=== PATIENT | male | born 1990 | race African-American/Black ===

== ENCOUNTER 2021-05-05 13:59 | Emergency (ER) | payer SELFPAY ==
[2021-05-05] MEDS ORDERED: KETOROLAC 30 MG/ML INJ ONE (14:40)
[2021-05-05] MEDS ORDERED: FAMOTIDINE 20 MG/2 ML VIAL IV ONE (14:41)
[2021-05-05] MEDS ORDERED: NA CHLORIDE 0.9% 1,000 ML ONE (14:41)
[2021-05-05] MEDS ORDERED: ONDANSETRON 4 MG/2 ML VIAL ONE (14:41)
[2021-05-05 14:59] LABS: Absolute Lymphocytes (CBC) 0.2 K/uL (0.7-4.9); Hematocrit 42.3 % (39.6-49.0); Lymphocytes % 2.9 % (15.3-44.8); MPV 7.4 fL (7.6-11.3); RBC Red Blood Cell Count 5.55 M/uL (4.33-5.43)
[2021-05-05 15:14] LABS: ALT/SGPT 38 U/L (12-78); AST/SGOT 18 U/L (15-37); Alkaline Phosphatase 66 U/L (45-117); BUN Blood Urea Nitrogen 9 mg/dL (7-18); Bicarbonate 26 mmol/L (21-32); Bilirubin Total 0.8 mg/dL (0.2-1.0); Glucose Level 108 mg/dL (74-106); Lipase 101 U/L (73-393); Potassium 3.4 mmol/L (3.5-5.1); Protein, Total 7.3 g/dL (6.4-8.2); Sodium Level 138 mmol/L (136-145)
[2021-05-05 15:52] LABS: SARS-COV-2 RT PCR NEGATIVE (NEGATIVE)
[2021-05-05 16:14] LABS: Blood Morphology Comment NOTED (NOT SEEN); Platelet Estimate ADEQ; Poikilocytosis 2+; White Blood Cell Scan OK (OK)
--- NOTE | 2021-05-05 16:37 | RAD REPORT ---
EXAM DESCRIPTION: CT - Abdomen Pelvis W Contrast - 05/05/2021 4:19 pm CLINICAL HISTORY: Abdominal pain COMPARISON: none. TECHNIQUE: Computed axial tomography of the abdomen pelvis was obtained. 100 cc Isovue-300 was admin istered intravenously. Oral contrast was not requested which limits evaluation of bowel and appendix. All CT scans are performed using dose optimization technique as appropriate and may include automated exposure control or mA/KV adjustment according to patient size. FINDINGS: The liver, spleen, pancreas, adrenal and kidneys appear unremarkable. There is no evidence of diverticulitis. Fluid is present throughout nondilated small bowel IMPRESSION: Fluid is present throughout nondilated small bowel which may indicate an enteritis
--- NOTE | 2021-05-05 16:44 | EDPHYS ---
Physician Documentation [facility] Name: Glenda Ramires Jr Age: 30 yrs Sex: Male : 1990 Arrival Date: 05/05/2021 Time: 14:03 Bed 17 Private MD: ED Physician Bill Carey HPI: 05/05 14:51 This 30 yrs old Black Male presents to ER via Ambulatory with complaints of Abdominal kb Pain, Headache. 14:51 The patient presents with abdominal pain that is diffuse. Onset: The symptoms/episode kb began/occurred last night. The symptoms do not radiate. Associated signs and symptoms: Pertinent positives: diarrhea, nausea. The symptoms are described as constant. Modifying factors: The symptoms are alleviated by nothing, the symptoms are aggravated by nothing. Severity of pain: At its worst the pain was moderate in the emergency department the pain is unchanged. The patient has not experienced similar symptoms in the past. The patient has not recently seen a physician. Pt states he started not feeling well last night, abd pain, nausea, diarrhea x1 and headache today. Historical: - Allergies: 14:13 No Known Allergies; ll1 - PMHx: 14:13 None; ll1 - PSHx: 14:13 None; ll1 - Immunization history:: Client reports having NOT received the Covid vaccine. - Social history:: Smoking status: Reported history of juuling and/or vaping. ROS: 14:49 Constitutional: Negative for fever, chills, and weight loss. kb 14:49 Abdomen/GI: Positive for abdominal pain, nausea, diarrhea. 14:49 Neuro: Positive for headache. 14:49 All other systems are negative. Exam: 14:49 Constitutional: This is a well developed, well nourished patient who is awake, alert, kb and in no acute distress. Head/Face: Normocephalic, atraumatic. ENT: Moist Mucous membranes Cardiovascular: Regular rate and rhythm with a normal S1 and S2. No gallops, murmurs, or rubs. No pulse deficits. Respiratory: Respirations even and unlabored. No increased work of breathing. Talking in full sentences Abdomen/GI: Soft, non-tender. No distention Skin: Warm, dry with normal turgor. Normal color. MS/ Extremity: Pulses equal, no cyanosis. Neurovascular intact. Full, normal range of motion. Neuro: Awake and alert, GCS 15, oriented to person, place, time, and situation. Moves all extremities. Normal gait. Psych: Awake, alert, with orientation to person, place and time. Behavior, mood, and affect are within normal limits. Vital Signs: 14:11 BP 132 / 85; Pulse 91; Resp 16; Temp 98.3; Pulse Ox 100% ; Weight 63.96 kg; Height 5 ll1 ft. 6 in. (167.64 cm); Pain 7/10; 15:03 BP 127 / 82; Pulse 86; Resp 18; Pulse Ox 98% on R/A; ph 16:10 BP 128 / 89; Pulse 84; Resp 18; Pulse Ox 98% on R/A; ph 16:59 Temp 98.0(TE); ph 14:11 Body Mass Index 22.76 (63.96 kg, 167.64 cm) ll1 MDM: 14:09 Patient medically screened. kb 14:49 Data reviewed: vital signs, nurses notes. Data interpreted: Pulse oximetry: on room air kb is 100 %. Interpretation: normal. 16:43 Counseling: I had a detailed discussion with the patient and/or guardian regarding: the kb historical points, exam findings, and any diagnostic results supporting the discharge/admit diagnosis, lab results, radiology results, the need for outpatient follow up, a family practitioner, to return to the emergency department if symptoms worsen or persist or if there are any questions or concerns that arise at home. 05/05 14:14 Order name: CBC with Diff; Complete Time: 16:19 kb 05/05 14:14 Order name: CMP; Complete Time: 15:15 kb 05/05 14:14 Order name: Lipase; Complete Time: 15:15 kb 05/05 14:14 Order name: COVID-19/FLU A+B (Document "Date of Onset" if Symptomatic); Complete Time: kb 15:54 05/05 15:54 Order name: CT Abd/Pelvis - IV Contrast Only; Complete Time: 16:43 kb 05/05 16:15 Order name: CBC Smear Scan; Complete Time: 16:19 EDMS 05/05 14:14 Order name: IV Saline Lock; Complete Time: 14:51 kb 05/05 14:14 Order name: Labs collected and sent; Complete Time: 14:51 kb Administered Medications: 14:57 Drug: NS 0.9% 1000 ml Route: IV; Rate: 1 bolus; Site: right antecubital; ph 17:00 Follow up: Response: No adverse reaction; IV Status: Completed infusion; IV Intake: ph 1000ml 14:57 Drug: Pepcid (famotidine) 20 mg Route: IVP; Site: right antecubital; ph 17:00 Follow up: Response: No adverse reaction ph 14:57 Drug: Zofran (Ondansetron) 4 mg Route: IVP; Site: right antecubital; ph 17:00 Follow up: Response: No adverse reaction ph 14:57 Drug: Ketorolac 15 mg Route: IVP; Site: right antecubital; ph 15:30 Follow up: Response: No adverse reaction; Pain is decreased ph Disposition: 05/06 13:46 Co-signature as Attending Physician, Bill KLINE was immediately available on-site ms3 in the Emergency Department for consultation in the care of the patient.. Disposition Summary: 05/05/21 16:44 Discharge Ordered Location: Home kb Condition: Stable kb Diagnosis - Enteritis kb Followup: kb - With: Emergency Department - When: As needed - Reason: Worsening of condition Followup: kb - With: Private Physician - When: 2 - 3 days - Reason: Recheck today's complaints, Continuance of care, Re-evaluation by your physician Discharge Instructions: - Discharge Summary Sheet kb - Viral Gastroenteritis, Adult, [id number] kb Forms: - Medication Reconciliation Form kb - Thank You Letter kb - Antibiotic Education kb - Prescription Opioid Use kb - Work release form ss Prescriptions: - Zofran 4 mg Oral Tablet - take 1 tablet by ORAL route every 6 hours As needed; 20 tablet; Refills: 0, kb Product Selection Permitted - dicyclomine 20 mg Oral Tablet - take 1 tablet by ORAL route 4 times per day As needed; 20 tablet; Refills: 0, kb Product Selection Permitted Signatures: Dispatcher [employer] Jeaneth Banda FNP-C FNP-Ckb Hall, Patricia RN RN Courtney Michael RN RN ll1 Bill Carey DO DO ms3
--- NOTE | 2021-05-05 16:44 | ER ---
Nurse's Notes [facility] Name: Glenda Ramires Jr Age: 30 yrs Sex: Male : 1990 Arrival Date: 05/05/2021 Time: 14:03 Bed 17 Private MD: Diagnosis: Enteritis Presentation: 05/05 14:11 Chief complaint: Patient states: Abd pain, KIM, nausea, diarrhea for 1 day. Coronavirus ll1 screen: Vaccine status: Patient reports being unvaccinated. Client denies travel out of the [place] in the last 14 days. headache, nausea, Client presents with at least one sign or symptom that may indicate coronavirus-19. Standard/surgical mask placed on the client. Ebola Screen: Patient denies travel to an Ebola-affected area in the 21 days before illness onset. Onset of symptoms was May 05, 2021. 14:11 Method Of Arrival: Ambulatory ll1 14:11 Acuity: DAMIÁN 3 ll1 14:30 Initial Sepsis Screen: Does the patient meet any 2 criteria? No. Patient's initial ph sepsis screen is negative. Does the patient have a suspected source of infection? No. Patient's initial sepsis screen is negative. Risk Assessment: Do you want to hurt yourself or someone else? Patient reports no desire to harm self or others. Historical: - Allergies: 14:13 No Known Allergies; ll1 - PMHx: 14:13 None; ll1 - PSHx: 14:13 None; ll1 - Immunization history:: Client reports having NOT received the Covid vaccine. - Social history:: Smoking status: Reported history of juuling and/or vaping. Screenin:29 Abuse screen: Denies threats or abuse. Denies injuries from another. Nutritional ph screening: No deficits noted. Tuberculosis screening: No symptoms or risk factors identified. Fall Risk None identified. Assessment: 15:02 General: Appears in no apparent distress. comfortable, Behavior is calm, cooperative, ph appropriate for age, Denies fever. Pain: Complains of pain in abdomen. Neuro: Level of Consciousness is awake, alert, obeys commands, Oriented to person, place, time, situation, Reports headache. Cardiovascular: Capillary refill < 3 seconds in bilateral fingers Patient's skin is warm and dry. Respiratory: Airway is patent Respiratory effort is even, unlabored. GI: Abdomen is non-distended, Abd is soft and non tender X 4 quads. Reports lower abdominal pain, upper abdominal pain, diarrhea, nausea. Derm: Skin is intact, Skin is pink, warm \T\ dry. 16:10 Reassessment: Patient appears in no apparent distress at this time. Patient and/or ph family updated on plan of care and expected duration. Pain level reassessed. Patient is alert, oriented x 3, equal unlabored respirations, skin warm/dry/pink. 16:59 Reassessment: Patient appears in no apparent distress at this time. Patient and/or ph family updated on plan of care and expected duration. Pain level reassessed. Patient is alert, oriented x 3, equal unlabored respirations, skin warm/dry/pink. Pt d/c home. Vital Signs: 14:11 BP 132 / 85; Pulse 91; Resp 16; Temp 98.3; Pulse Ox 100% ; Weight 63.96 kg; Height 5 ll1 ft. 6 in. (167.64 cm); Pain 7/10; 15:03 BP 127 / 82; Pulse 86; Resp 18; Pulse Ox 98% on R/A; ph 16:10 BP 128 / 89; Pulse 84; Resp 18; Pulse Ox 98% on R/A; ph 16:59 Temp 98.0(TE); ph 14:11 Body Mass Index 22.76 (63.96 kg, 167.64 cm) ll1 ED Course: 14:03 Patient arrived in ED. rg4 14:04 Jeaneth Abreu [facility]-C [facility]. kb 14:04 Bill Carey DO is Attending Physician. kb 14:11 Arm band placed on Patient placed in an exam room, on a stretcher. ll1 14:13 Triage completed. ll1 14:28 Gina Beavers, RN is Primary Nurse. ph 14:29 Patient has correct armband on for positive identification. Bed in low position. Call ph light in reach. Side rails up X 1. Pulse ox on. NIBP on. Door closed. Noise minimized. 16:21 CT Abd/Pelvis - IV Contrast Only In Process Unspecified. EDMS 17:01 No provider procedures requiring assistance completed. IV discontinued, intact, ph bleeding controlled, No redness/swelling at site. Pressure dressing applied. Administered Medications: 14:57 Drug: NS 0.9% 1000 ml Route: IV; Rate: 1 bolus; Site: right antecubital; ph 17:00 Follow up: Response: No adverse reaction; IV Status: Completed infusion; IV Intake: ph 1000ml 14:57 Drug: Pepcid (famotidine) 20 mg Route: IVP; Site: right antecubital; ph 17:00 Follow up: Response: No adverse reaction ph 14:57 Drug: Zofran (Ondansetron) 4 mg Route: IVP; Site: right antecubital; ph 17:00 Follow up: Response: No adverse reaction ph 14:57 Drug: Ketorolac 15 mg Route: IVP; Site: right antecubital; ph 15:30 Follow up: Response: No adverse reaction; Pain is decreased ph Intake: 17:00 IV: 1000ml; Total: 1000ml. ph Outcome: 16:44 Discharge ordered by . kb 17:01 Discharged to home ambulatory. ph 17:01 Condition: good 17:01 Discharge instructions given to patient, Instructed on discharge instructions, follow up and referral plans. medication usage, Demonstrated understanding of instructions, follow-up care, medications, Prescriptions given X 2. 17:01 Patient left the ED. ph Signatures: Dispatcher [employer] EDMS Jeaneth Abreu, ENTRY LEVEL SALES REPRESENTATIVE-C ENTRY LEVEL SALES REPRESENTATIVE-Gina Tracey, RN Sharmila Martinez ph4 Courtney Simpson RN RN ll1
[2021-05-05 17:06] VITALS: O2SAT 98
[2021-05-05 17:08] VITALS: BP 128/89
[2021-05-05 17:09] VITALS: TEMP 98
== END 2021-05-05 17:01 | disposition home or self-care (01) ==
LOC: ER 13:59
DX: K52.9 Noninfective gastroenteritis and colitis, unspecified (principal); R51.9 Headache, unspecified; R11.0 Nausea
CPT/HCPCS: 0240U; 36415; 74177; 80053; 83690; 85025; J2405; J7030; Q9967

== ENCOUNTER → 2023-01-30 | Emergency (ER) | payer OTHER ==
[~2023-01-30] MED LIST: IBUPROFEN 400 MG TAB ONE; TRAMADOL HCL 50 MG TAB ONE
--- OUTSIDE RECORDS SUMMARY | 2023-01-30 03:02 | XMS REPORT | Continuity of Care Document ---
Author Name Unknown Address [address] [place] [address] [employer]connect Address [address] [place] [address] [address] [place] [address] Care Team Providers Care Sales Account Coordinator Name Role Phone Unavailable Unavailable Unavailable Results Test Description Test Time Test Comments Results Result Co mments Source [id number] 22:53:52* Test Item Value Reference Range Interpretation Comme nts RPR RESULT (test code = 3501) NON-REACTIVE NON-REACTIVE RPR TITER (test code = 3500) NOT INDIC. TITER NOT INDIC. UNLESS OTHERWISE INDICATED, ALL TESTING PERFORMED [facility] [address] [place] [id number] ORNAMENTAL IRON ERECTOR: MINOR QUINTANILLA M.D. CLIA NUMBER [id number] [facility] [place]. [id number]
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
[2023-01-30 08:22] VITALS: BP 122/96; TEMP 98.1; O2SAT 100
--- NOTE | 2023-01-30 13:28 | RAD REPORT ---
EXAM DESCRIPTION: RAD - Foot Left 3 View - 01/30/2023 4:25 am CLINICAL HISTORY: 32 years Male left foot pain TECHNIQUE: 3 x-ray views of the left foot were performed on 01/30/2023 at 4:19 AM. COMPARISON: None FINDINGS: There is mild cortical irregularity along the dorsal aspect of the tarsal metatarsal joint on the lateral projection which may indicate a small avulsion fracture. There is mild focal soft tis fatemeh swelling in this location. Otherwise, there is no evidence of acute fracture or dislocation. No a rthritic or degenerative changes are identified. There are no lytic or sclerotic bone lesions. Bone mineralization is normal. No additional focal soft tissue abnormalities are identified. IMPRESSION: Mild cortical irregularity along the dorsal aspect of the tarsometatarsal joint on the l ateral projection which may indicate a small avulsion fracture. There is mild focal soft tissue swell ing in this location. Electronically signed by: Iraida Beltran DO 01/30/2023 06:20 AM DBAS Due to temporary technical issues with the PACS/Fluency reporting system, reports are being signed by the in house radiologists without review as a courtesy to insure prompt reporting. The interpreting radiologist is fully responsible for the content of the report.
--- NOTE | 2023-01-30 13:38 | RAD REPORT ---
EXAM DESCRIPTION: RAD - Ankle Left 3 View - 01/30/2023 4:25 am CLINICAL HISTORY: 32 years Male left foot pain TECHNIQUE: Three x-ray views of the left ankle were performed on 01/30/2023 at 4:18 AM. COMPARISON: None FINDINGS: On the lateral projection there is cortical irregularity involving the dorsal aspect of th e tarsal metatarsal joint concerning for an avulsion fracture. There is slight soft tissue swelling i n this location. Otherwise, no additional fractures identified. There is no evidence of dislocation. No significant arthritic or degenerative changes are seen. There are no lytic or sclerotic bone lesio ns. Bone mineralization is normal. There is no evidence of subcutaneous emphysema or radiopaque foreign body. IMPRESSION: 1. Findings suspicious for an avulsion fracture along the dorsal aspect of one of the proximal metatarsals. There is slight soft tissue swelling in this location. 2. Otherwise, unremarkable left ankle. Electronically signed by: Iraida Beltran DO 01/30/2023 06:23 AM ANATOMICAL EMBALMER Due to temporary technical issues with the PACS/Fluency reporting system, reports are being signed by the in house radiologists without review as a courtesy to insure prompt reporting. The interpreting radiologist is fully responsible for the content of the report.
== END ==
LOC: ER 03:00
DX: S92.302A Fracture of unspecified metatarsal bone(s), left foot, initial encounter for closed fracture (principal)
CPT/HCPCS: 99283

== ENCOUNTER 2024-02-01 11:50 | Observation (INO) | payer SELFPAY ==
--- OUTSIDE RECORDS SUMMARY | 2024-02-01 11:53 | XMS REPORT | Continuity of Care Document ---
Author Name Unknown Address [address] [place] [address]. [address] [place] [address] [employer] Address [address] [place] [address]. [address] [place] [address] Care Team Providers Care Field Sales Representative Name Role Phone Unavailable Unavailable Unavailable Results Test Description Test Time Test Comments Results Result Co mments Source [id number] 22:53:52* Test Item Value Reference Range Interpretation Comme nts RPR RESULT (test code = 3501) NON-REACTIVE NON-REACTIVE RPR TITER (test code = 3500) NOT INDIC. TITER NOT INDIC. UNLESS OTHERWISE INDICATED, ALL TESTING PERFORMED [facility] [address] [place] [id number] [employer] M[employer] OFFBEARER: MINOR QUINTANILLA M.D. CLIA NUMBER [id number] [facility] [place]. [id number]
--- NOTE | 2024-02-01 13:00 | RAD REPORT ---
EXAMINATION: ONE VIEW CHEST XR CLINICAL INDICATION: CHEST PAIN TECHNIQUE: Frontal chest projection is submitted. Examination is limited by patient positioning and t echnique. COMPARISON: No prior exam. FINDINGS: The lungs are well inflated and clear. The heart is normal in size. No displaced fractures identified . IMPRESSION: No acute intrathoracic abnormalities.
[2024-02-01 13:59] LABS: Absolute Basophils 0.1 K/uL (0-0.5); Absolute Eosinophils 0.1 K/uL (0-0.5); Absolute Lymphocytes (CBC) 1.9 K/uL (0.7-4.9); Absolute Monocytes 0.7 K/uL (0.1-1.3); Absolute Neutrophil 6.6 K/uL (1.8-8.0); Basophils % 0.9 % (0-1.3); Eosinophils % 0.7 % (0-4.4); Hematocrit 42.8 % (39.6-49.0); Hemoglobin 13.3 g/dL (13.6-17.9); Lymphocytes % 19.9 % (15.3-44.8); MCH 24.4 pg (27.0-35.0); MCHC 31.1 g/dL (32.0-36.0); MCV 78.5 fL (80-100); MPV 8.3 fL (7.6-11.3); Monocytes % 7.5 % (3.3-12.3); Platelets 301 thou/uL (152-406); RBC Red Blood Cell Count 5.45 M/uL (4.33-5.43); Red Cell Distribution Width 15.3 % (12.1-15.2)
[2024-02-01 15:07] LABS: Anion Gap 6.7 mEq/L (5.0-15.0); Potassium 3.7 mEq/L (3.5-5.1); Troponin High Sensitivity 6.3 pg/mL (<58.9)
--- NOTE | 2024-02-01 15:32 | EDPHYS ---
Physician Documentation [facility] Name: Glenda Ramires Jr Age: 33 yrs Sex: Male : 1990 Arrival Date: 02/01/2024 Time: 11:50 Bed 7 Private MD: ED Physician Mark Rao HPI: 01/31 12:44 This 33 yrs old Black Male presents to ER via Ambulatory with complaints of Chest Pain. ec2 12:44 Patient arrives today for intermittent chest pain ongoing for several days. Reports ec2 pain is mild at this time. Reports no significant medical problems, no daily medications, no significant family medical history of cardiac disease.. Historical: - Allergies: 12:24 No Known Allergies; iw - Home Meds: 12:24 None [Active]; iw - PMHx: 12:24 None; iw - PSHx: 12:24 None; iw - Immunization history:: Adult Immunizations not up to date. - Infectious Disease History:: Denies. - Social history:: Smoking status: Reported history of juuling and/or vaping. ROS: 12:44 Constitutional: as per hpi ec2 Exam: 12:44 Constitutional: GEN: NAD Head: atraumatic Eyes: EOMI Ears: External ears are ec2 normal. CV: regular rate LUNGS: no respiratory distress ABD: non-distended SKIN: no evidence of rashes MSK: no evidence of trauma Vital Signs: 12:24 Weight 70.31 kg; Height 5 ft. 5 in. ; Pain 5/10; iw 14:00 BP 126 / 84; Pulse 86; Resp 18; Pulse Ox 100% on R/A; ld1 15:22 BP 145 / 107; Pulse 77; ec2 15:30 BP 133 / 89; Pulse 84; Resp 18; Pulse Ox 100% on R/A; ld1 17:06 BP 132 / 92; Pulse 93; Resp 18; Pulse Ox 100% on R/A; ld1 17:15 BP 140 / 105; Pulse 87; Resp 15; Pulse Ox 98% ; ko1 12:24 Body Mass Index 25.79 (70.31 kg, 165.1 cm) iw 12:24 Pain Scale: Adult iw MDM: 12:21 Medical Screening Exam initiated ec2 12:43 ED course: EKG independently reviewed and interpreted by me, shows normal sinus rhythm, ec2 likely benign early repolarization pattern in the anterior leads however does have some ST depressions in the inferior leads in leads III and aVF. Otherwise normal sinus rhythm with a rate of 74. I did discuss case with Dr. Ji given the reported chest pain, will perform cardiac workup and hold off on activating [employer] at this time.. 12:44 Data reviewed: vital signs, nurses notes. ED course: Patient arrives for chest pain. ec2 Examination yields comfortable appearing dividual's otherwise in no acute distress. Differential includes ACS, PE, dissection.. 14:02 ED course: EKG independently reviewed and interpreted by me, shows normal sinus rhythm, ec2 rate of 80, no acute ST segment ovation's, intervals are nonactionable.. 15:30 ED course: Will admit for further cardiac workup. Discussed with hospitalist, pending ec2 admission.. 01/31 12:21 Order name: Basic Metabolic Panel; Complete Time: 15:09 01/31 12:21 Order name: CBC with Diff; Complete Time: 14:05 01/31 12:21 Order name: Troponin HS; Complete Time: 15:09 01/31 16:06 Order name: Urinalysis w/ reflexes [facility] 01/31 16:06 Order name: Basic Metabolic Panel [facility] 01/31 16:06 Order name: Basic Metabolic Panel [facility] 01/31 16:06 Order name: Comprehensive Metabolic Panel [facility] 01/31 16:06 Order name: Comprehensive Metabolic Panel [facility] 01/31 16:06 Order name: Lipid Profile [facility] 01/31 16:06 Order name: Lipid Profile [facility] 01/31 16:06 Order name: Magnesium [facility] 01/31 16:06 Order name: Magnesium [facility] 01/31 16:06 Order name: Troponin High Sensitivity [facility] 01/31 16:06 Order name: Troponin High Sensitivity [facility] 01/31 16:06 Order name: Troponin High Sensitivity [facility] 01/31 12:21 Order name: XRAY Chest (1 view); Complete Time: 14:05 01/31 16:03 Order name: CONS Physician Consult [facility] 01/31 12:21 Order name: Cardiac monitoring; Complete Time: 12:22 01/31 12:21 Order name: EKG - Nurse/Tech; Complete Time: 12:22 01/31 12:21 Order name: IV Saline Lock; Complete Time: 14:52 iw 01/31 12:21 Order name: Labs collected and sent; Complete Time: 12:30 iw 01/31 12:21 Order name: O2 Per Protocol; Complete Time: 12: iw 01/31 12:21 Order name: O2 Sat Monitoring; Complete Time: 12: iw 01/31 14:01 Order name: Labs - recollect needed: green top; Complete Time: 14:52 iw Administered Medications: 15:56 Drug: Aspirin PO Chewable Tablet 324 mg PO once; 81 mg tablets x 4 Route: PO; ld1 16:25 Follow up: Response: No adverse reaction ld1 17:05 Drug: morphine IVP or IV 4 mg IVP once over 4 mins Route: IVP; Infused Over: 4 mins; ld1 Site: left antecubital; 17:20 Follow up: Response: No adverse reaction ko1 17:05 Drug: Ondansetron IVP 4 mg IVP once; over 2 minutes Route: IVP; Site: left antecubital; ld1 17:20 Follow up: Response: No adverse reaction ko1 Disposition Summary: 02/01/24 15:31 Hospitalization Ordered Notes: Hospitalization Status: Inpatient Admission ec2 Provider: Tashia Cummings ec2 Location: Telemetry/MedSurg (Inpatient) ec2 Condition: Stable ec2 Problem: new ec2 Symptoms: have improved ec2 Bed/Room Type: Standard ec2 Room Assignment: 210(02/01/24 16:20) ty Diagnosis - Chest pain, unspecified ec2 Forms: - Medication Reconciliation Form ec2 - SBAR form ec2 - Leadership Thank You Letter ec2 Signatures: Dispatcher [employer] Yadi Guajardo, SARKIS RN iw Keren Carey RN RN ld1 Mark Rao MD MD ec2 Khoa Wheeler Kathy RN ko1 Corrections: (The following items were deleted from the chart) 12: 12:22 BASIC METABOLIC PANEL+C.LAB.BRZ ordered. EDMS EDMS 12:22 12:22 CBC+H.LAB.BRZ ordered. EDMS EDMS 12:22 12:22 Troponin High Sensitivity+C.LAB.BRZ ordered. EDMS EDMS 12:22 12:22 Chest Single View+RAD.RAD.BRZ ordered. EDMS EDMS 16:20 15:31 ec2 ty
--- NOTE | 2024-02-01 15:32 | ER ---
Nurse's Notes [facility] Name: Glenda Ramires Jr Age: 33 yrs Sex: Male : 1990 Arrival Date: 02/01/2024 Time: 11:50 Bed 7 Private MD: Diagnosis: Chest pain, unspecified Presentation: 01/31 12:19 Chief complaint: Patient states: midsternal chest pain since Monday , was wearing a iw breathing mask at work and since then he feels tightness. Risk Assessment: Do you want to hurt yourself or someone else? Patient reports no desire to harm self or others. 12:19 Method Of Arrival: Ambulatory iw 12:19 Acuity: DAMIÁN 2 iw 17:23 Coronavirus screen: At this time, the client does not indicate any symptoms associated ko1 with coronavirus-19. Ebola Screen: No symptoms or risks identified at this time. Initial Sepsis Screen: Does the patient meet any 2 criteria? No. Patient's initial sepsis screen is negative. Does the patient have a suspected source of infection? No. Patient's initial sepsis screen is negative. Onset of symptoms is unknown. Historical: - Allergies: 12:24 No Known Allergies; iw - Home Meds: 12:24 None [Active]; iw - PMHx: 12:24 None; iw - PSHx: 12:24 None; iw - Immunization history:: Adult Immunizations not up to date. - Infectious Disease History:: Denies. - Social history:: Smoking status: Reported history of juuling and/or vaping. Screenin:07 [facility] ED Fall Risk Assessment (Adult) History of falling in the last 3 months, ld1 including since admission No falls in past 3 months (0 pts) Confusion or Disorientation No (0 pts) Intoxicated or Sedated No (0 pts) Impaired Gait No (0 pts) Mobility Assist Device Used No (0 pt) Altered Elimination No (0 pt) Score/Fall Risk Level 0 - 2 = Low Risk Oriented to surroundings, Maintained a safe environment, Educated pt \T\ family on fall prevention, incl call for assistance when getting out of bed, Assessed \T\ reinforced patient's understanding of fall precautions, Provided non-skid footwear, Hourly rounding (assess needs \T\ fall precautionary measures) done, Used ambulatory aids as needed (educated on \T\ assisted with), Used gait belt as appropriate. Abuse screen: Denies threats or abuse. Denies injuries from another. Nutritional screening: No deficits noted. Tuberculosis screening: No symptoms or risk factors identified. Assessment: 14:00 General: Appears in no apparent distress. uncomfortable, Behavior is calm, cooperative, ld1 appropriate for age. Pain: Complains of pain in chest Pain does not radiate. Pain currently is 7 out of 10 on a pain scale. Quality of pain is described as sharp, throbbing, Pain began suddenly, Is continuous. Neuro: Level of Consciousness is awake, alert, obeys commands, Oriented to person, place, time, situation. Cardiovascular: Capillary refill < 3 seconds Patient's skin is warm and dry. Cardiovascular: Reports chest pain. Respiratory: Airway is patent Respiratory effort is even, unlabored. GI: Abdomen is flat, non-distended. : No signs and/or symptoms were reported regarding the genitourinary system. EENT: No signs and/or symptoms were reported regarding the EENT system. Derm: No signs and/or symptoms reported regarding the dermatologic system. Musculoskeletal: No signs and/or symptoms reported regarding the musculoskeletal system. 15:15 Reassessment: Patient appears in no apparent distress at this time. No changes from ld1 previously documented assessment. Patient and/or family updated on plan of care and expected duration. Pain level reassessed. 16:30 Reassessment: Patient appears in no apparent distress at this time. No changes from ld1 previously documented assessment. Patient states symptoms have not improved. Vital Signs: 12:24 Weight 70.31 kg; Height 5 ft. 5 in. ; Pain 5/10; iw 14:00 BP 126 / 84; Pulse 86; Resp 18; Pulse Ox 100% on R/A; ld1 15:22 BP 145 / 107; Pulse 77; ec2 15:30 BP 133 / 89; Pulse 84; Resp 18; Pulse Ox 100% on R/A; ld1 17:06 BP 132 / 92; Pulse 93; Resp 18; Pulse Ox 100% on R/A; ld1 17:15 BP 140 / 105; Pulse 87; Resp 15; Pulse Ox 98% ; ko1 12:24 Body Mass Index 25.79 (70.31 kg, 165.1 cm) iw 12:24 Pain Scale: Adult iw ED Course: 11:52 Patient arrived in ED. mr 12:21 Triage completed. iw 12:21 Mark Rao MD is Attending Physician. ec2 12:22 Keren Carey, SARKIS is Primary Nurse. ld1 12:24 Arm band placed on. iw 12:34 Mark Rao MD is Attending Physician. ec2 12:52 XRAY Chest (1 view) In Process Unspecified. EDMS 14:30 Lab(s) recollected, by me, sent to lab. Inserted saline lock: 22 gauge in left iw antecubital area, using aseptic technique. Blood collected. Flushed with 10 mL NS. 15:31 Tashia Cummings MD is Hospitalizing Provider. ec2 17:07 Patient has correct armband on for positive identification. Placed in gown. Bed in low ld1 position. Call light in reach. Side rails up X2. shelter monitor on. Pulse ox on. NIBP on. Door closed. Noise minimized. 17:07 No provider procedures requiring assistance completed. Patient maintains SpO2 ld1 saturation greater than 95% on room air. 17:22 Provided Education on: admit. ko1 17:22 Patient admitted, IV remains in place. ko1 Administered Medications: 15:56 Drug: Aspirin PO Chewable Tablet 324 mg PO once; 81 mg tablets x 4 Route: PO; ld1 16:25 Follow up: Response: No adverse reaction ld1 17:05 Drug: morphine IVP or IV 4 mg IVP once over 4 mins Route: IVP; Infused Over: 4 mins; ld1 Site: left antecubital; 17:20 Follow up: Response: No adverse reaction ko1 17:05 Drug: Ondansetron IVP 4 mg IVP once; over 2 minutes Route: IVP; Site: left antecubital; ld1 17:20 Follow up: Response: No adverse reaction ko1 Medication: 17:07 VIS not applicable for this client. ld1 Outcome: 15:31 Decision to Hospitalize by Provider. ec2 17:22 Admitted to Tele accompanied by tech, via wheelchair, room 210, with chart, ko1 17:22 Condition: stable 17:22 Instructed on the need for admit, 17:25 Patient left the ED. ko1 Signatures: Dispatcher [employer] EDAZ Joy Murray, Reg Reg mr Yadi Ceballos RN RN iw Keren Carey, RN RN ld1 Debbi Horvath, RN RN ko1 Mark Rao MD MD ec2
[2024-02-01] MEDS ORDERED: ASPIRIN 81 MG CHEWABLE TABLET ONE (15:54)
--- NOTE | 2024-02-01 15:59 | P.HP ---
Certification for Inpatient Patient admitted to: Observation Patient will require the following post-hospital care: None Practitioner: I am a practitioner with admitting privileges, knowledge of patient current condition, hospital course, and medical plan of care. Services: Services provided to patient in accordance with Admission requirements found in Title 42 Section 412.3 of the Code of Federal Regulations Patient History Date of Service: 02/01/24 Reason for admission: Chest pain History of Present Illness: 33-year-old male with no significant past medical history presents to the emergency room with chest pain. he reports chest pain started 2 to 3 days ago, chest pain 6 out of 10, nonradiating, he reports pain with inspiration. He denies dizziness, edema, no reported history of hypertension, hyperlipidemia, he reports vaping, no reported recreational drug use/alcohol use, no history of IA, congenital heart disease. plan to admit for chest pain rule out IA, cardiology to consult. Allergies No Known Allergies Allergy (Unverified 02/01/24 17:42) Home Medications: NK [No Home Meds] 02/01/24 - Past Medical/Surgical History Past Medical History: Patient denies medical history Past Surgical History: Patient denies surgical history - Social History Smoking Status: Current some day smoker Alcohol use: No CD- Drugs: Yes Place of Residence: Home Review of Systems 10-point ROS is otherwise unremarkable Physical Examination - Physical Exam General: Alert, In no apparent distress, Oriented x3 HEENT: Atraumatic, Normocephalic Neck: Supple, 2+ carotid pulse no bruit Respiratory: Clear to auscultation bilaterally, Normal air movement, Other (Pleuritic chest pain) Cardiovascular: Normal pulses, Regular rate/rhythm, Normal S1 S2 Capillary refill: <2 Seconds Gastrointestinal: Normal bowel sounds, Soft and benign Musculoskeletal: No clubbing, No swelling Integumentary: No breakdown, No significant lesion Neurological: Normal speech, Normal strength at 5/5 x4 extr, Sensation intact - Studies Laboratory Data (last 24 hrs) 02/01/24 02/01/24 14:34 13:44 WBC 9.40 Hgb 13.3 L Hct 42.8 Plt Count 301 Sodium 138 Potassium 3.7 BUN 11 Creatinine 0.92 Glucose 81 Assessment and Plan - Problems (Diagnosis) (1) Chest pain, rule out acute myocardial infarction Current Visit: Yes Status: Acute (2) Abnormal EKG Current Visit: Yes Status: Acute (3) Pleuritic chest pain Current Visit: Yes Status: Acute - Plan Assessment plan -Admit to [facility], telemetry -Cardiology to consult, - n.p.o. after midnight for possible stress test in a.m. -Trend troponins, lipid panel in the a.m. -as needed analgesics, antiemetics, nitro ordered, -Aspirin, Lipitor added Cardiac diet Full code DVT Lovenox Disposition Home independent prior Discharge Plan: Home - Advance Directives Does patient have a Living Will: No Does patient have a Durable POA for Healthcare: No - Code Status/Comfort Care Code Status: Full Code Critical Care: No Time Spent Managing Pts Care (In Minutes): 55
[2024-02-01] MEDS ORDERED: ONDANSETRON 4 MG/2 ML VIAL IV PRN (16:03)
[2024-02-01] MEDS ORDERED: ZOLPIDEM TARTRATE 5 MG TABLET PO PRN (16:03)
[2024-02-01] MEDS ORDERED: ACETAMINOPHEN 500 MG TAB PO PRN (16:03)
[2024-02-01] MEDS ORDERED: MORPHINE 4 MG/ML SYR ONE (16:52)
[2024-02-01 17:47] VITALS: O2SAT 98
[2024-02-01 18:05] VITALS: BMI 25.7
[2024-02-01] MEDS: NITROGLYCERIN 0.4 MG/TAB SL PRN (19:54)
[2024-02-01] MEDS: MORPHINE 2 MG/ML SYR IV PRN (20:52)
[2024-02-01] MEDS: ATORVASTATIN 40 MG TAB PO SCH (20:52)
--- NOTE | 2024-02-01 21:48 | RAD REPORT ---
EXAMINATION: CTA CHEST PE CLINICAL INDICATION: rule out PE TECHNIQUE: This examination was performed according to an angiographic protocol with 3D post-processi ng. This involves 3D reconstructions, MIPs, volume rendered images and/or shaded surface rendering. One or more of the following dose reduction techniques were used: Automated exposure control, adjustm ent of the mA and/or kV according to patient size, and/or iterative reconstruction. Unless otherwise specified, incidental findings do not require dedicated imaging follow-up. COMPARISON: No prior exam. FINDINGS: PULMONARY ARTERIES: Normal caliber. No evidence of pulmonary emboli to the subsegmental level. THORACIC AORTA: Normal caliber and configuration. LUNGS: No evidence of airspace or interstitial process. No nodules. PLEURA: No pleural effusion. No pneumothorax. MEDIASTINUM AND LYMPH NODES: No mediastinal mass or fluid collection. Normal size mediastinal, hilar, and axillary lymph nodes. OSSEOUS STRUCTURES AND CHEST WALL: Intact. UPPER ABDOMEN: No significant abnormalities. IMPRESSION: No evidence of pulmonary emboli to the subsegmental level.
[2024-02-02 04:16] LABS: Sqamous Epithelial None Seen /HPF (None Seen); Urine Bacteria None Seen /HPF (<20); Urine Bilirubin NEGATIVE (Negative); Urine Blood Negative (Negative); Urine Clarity Clear (Clear); Urine Color Light-Yellow (Yellow); Urine Culture Reflex Order NOT NEEDED; Urine Glucose NEGATIVE (Negative); Urine Ketones NEGATIVE (Negative); Urine Microscopic Reflex YN ORDER UMIC; Urine Mucus Slight /HPF (None Seen); Urine Nitrite NEGATIVE (Negative); Urine Protein TRACE (Negative); Urine RBC <5 /HPF (None Seen); Urine Urobilinogen Normal (Normal); Urine WBC <5 /HPF (<5)
[2024-02-02 04:17] LABS: Specific Gravity > 1.030 (1.005-1.030)
[2024-02-02 05:19] LABS: Albumin 3.4 g/dL (3.4-5.0); Anion Gap 8.6 mEq/L (5.0-15.0); Bilirubin Total 0.7 mg/dL (0.2-1.0); Globulin 3.5 g/dL (2.3-3.5); Magnesium 1.8 mg/dL (1.6-2.4); Potassium 3.6 mEq/L (3.5-5.1); Protein, Total 6.9 g/dL (6.4-8.2)
[2024-02-02] MEDS ORDERED: REGADENOSON 0.4 MG/5 ML SYR IV ONE (08:55)
[2024-02-02] MEDS: ENOXAPARIN 40 MG/0.4 ML SQ SCH (09:00)
[2024-02-02] MEDS: KCL 20 MEQ/100 mL IVPB 20 MEQ/100 ML BAG IV SCH (09:00)
[2024-02-02] MEDS: ASPIRIN 325 MG TAB PO SCH (09:00)
[2024-02-02] MEDS: POTASSIUM 25 MEQ EFFERV TAB PO ONE (10:23)
[2024-02-02] MEDS: MAGNESIUM SULFATE 1 gm IVPB 1 GM/100 ML BAG IV ONE (10:24)
--- NOTE | 2024-02-02 10:44 | P.DS ---
Admission Date: 02/01/24 Discharge Date: 02/02/24 Disposition: ROUTINE DISCHARGE Discharge Condition: GOOD Reason for Admission: Chest pain Brief History of Present Illness: 33-year-old male with no significant past medical history presents to the emergency room with chest pain. he reports chest pain started 2 to 3 days ago, chest pain 6 out of 10, nonradiating, he reports pain with inspiration. He denies dizziness, edema, no reported history of hypertension, hyperlipidemia, he reports vaping, no reported recreational drug use/alcohol use, no history of MA, congenital heart disease. plan to admit for chest pain rule out MA, cardiology to consult. - Physical Exam General: Alert, In no apparent distress, Oriented x3 HEENT: Atraumatic, Normocephalic Neck: Supple, 2+ carotid pulse no bruit Respiratory: Clear to auscultation bilaterally, Normal air movement, Other (Pleuritic chest pain) Cardiovascular: Normal pulses, Regular rate/rhythm, Normal S1 S2 Capillary refill: <2 Seconds Gastrointestinal: Normal bowel sounds, Soft and benign Musculoskeletal: No clubbing, No swelling Integumentary: No breakdown, No significant lesion Neurological: Normal speech, Normal strength at 5/5 x4 extr, Sensation intact Hospital Course: 33-year-old male with no significant past medical history presents to the emergency room with chest pain. he reports chest pain started 2 to 3 days ago, chest pain 6 out of 10, nonradiating, he reports pain with inspiration. He denies dizziness, edema, no reported history of hypertension, hyperlipidemia, he reports vaping, no reported recreational drug use/alcohol use, no history of MA, congenital heart disease. plan to admit for chest pain rule out MA, cardiology to consult. His serial troponin were negative. Nucular Stress test was abnormal. He needs to follow up with Dr Guevaar for additional cardiac work up. He is tolerating diet, stable to discharge home, follow up with [facility] outpatient. Assessment Assessment and Plan (1) Chest pain, rule out acute myocardial infarction-serial trop neg- take asprin daily (2) Abnormal EKG (3) Pleuritic chest pain- Discharge home with prn analgesics Continue home medicines as previously prescribed GOAL: Clear understanding of disease process INSTRUCTIONS: Physician Discharge Instructions: -Follow up with cardiology, call office for apt -Follow-up with PCP in 1 to 2 weeks -Please call Dr. Cummings at [phone] if any questions regarding hospital stay -Please call nursing station at [phone] if any nursing or medication questions -Return to the emergency room if symptoms worsen Diet: ADA, low sodium Activity: Fall precautions Vital Signs/Physical Exam: Temp Pulse Resp BP Pulse Ox 97.6 F 72 16 143/96 H 99 02/02/24 08:00 02/02/24 08:00 02/02/24 08:00 02/02/24 08:00 02/02/24 08:00 Laboratory Data at Discharge: WBC 9.40 thou/uL (4.3-10.9) 02/01/24 13:44 Hgb 13.3 g/dL (13.6-17.9) L 02/01/24 13:44 Hct 42.8 % (39.6-49.0) 02/01/24 13:44 Plt Count 301 thou/uL (152-406) 02/01/24 13:44 Sodium 138 mEq/L (136-145) 02/02/24 04:06 Potassium 3.6 mEq/L (3.5-5.1) 02/02/24 04:06 BUN 11 mg/dL (7-18) 02/02/24 04:06 Creatinine 0.99 mg/dL (0.70-1.30) 02/02/24 04:06 Glucose 95 mg/dL (74-106) 02/02/24 04:06 Magnesium 1.8 mg/dL (1.6-2.4) 02/02/24 04:06 Total Bilirubin 0.7 mg/dL (0.2-1.0) 02/02/24 04:06 AST 18 U/L (15-37) 02/02/24 04:06 ALT 30 U/L (16-61) 02/02/24 04:06 Alkaline Phosphatase 75 U/L (45-117) 02/02/24 04:06 Triglycerides 103 mg/dL (<150) 02/02/24 04:06 Cholesterol 152 mg/dL (<200) 02/02/24 04:06 HDL Cholesterol 89 mg/dL (40-60) H 02/02/24 04:06 Cholesterol/HDL Ratio 1.71 02/02/24 04:06 Home Medications: Codeine/APAP [Tylenol W/Codeine #3 tab] 1 tab PO Q12HP PRN #20 tab 02/02/24 New Medications: Codeine/APAP [Tylenol W/Codeine #3 tab] 1 tab PO Q12HP PRN #20 tab PRN Reason: Pain Physician Discharge Instructions: PROBLEM: Chest Pain GOAL: Clear understanding of disease process INSTRUCTIONS: : Physician Discharge Instructions: -Follow-up with PCP in 1 to 2 weeks -Please call Dr. Cummings at [phone] if any questions regarding hospital stay -Please call nursing station at [phone] if any nursing or medication questions -Return to the emergency room if symptoms worsen Diet: Regular Activity: Fall precautions Diet: Regular Activity: Fall precautions Followup: NONE,NONE [Primary Care Provider] - Travon Guevara MD [ACTIVE - CAN ADMIT] - Time spent managing pt's care (in minutes): 45
[2024-02-02 12:10] VITALS: BP 149/94; TEMP 97.7
--- NOTE | 2024-02-02 13:37 | EKG ---
Test Date: 2024-02-01 Test Time: 12:17:57 Insulation Technician: ALVIN MEASUREMENT RESULTS: Intervals: Rate: 86 UT: 146 QRSD: 74 QT: 370 QTc: 442 [place]: P: 57 UT: 146 QRS: 86 T: 7 INTERPRETIVE STATEMENTS: Sinus rhythm with occasional and consecutive premature ventricular complexes and fusion complexes ST elevation, consider anterolateral injury or acute infarct ACUTE HI / STEMI Abnormal ECG No previous ECG available for comparison Electronically Signed On 02-02-24 13:35:58 TELECOMMUNICATIONS SPECIALIST by Travon Guevara
--- NOTE | 2024-02-02 14:47 | RAD REPORT ---
EXAM: Nuclear medicine cardiac perfusion examination with ejection fraction HISTORY: Chest pain TECHNIQUE: Rest images: 10.7 mCi technetium 99m sestamibi Stress images: 31.8 mCi of technetium 99m sestamibi; Lexiscan COMPARISON: None FINDINGS: Tomographic images: Questionable small reversible defect along the anterior wall near the apex, near the junction with the lateral wall. Adjacent moderate fixed defect of the anterior wall apical segment, suggestive of remote ischemia. Larger region of fixed defect involving the inferior wall and adjacent septum, favored to be artifactual and related to splanchnic uptake, although at least a portion of this may relate to regional remote ischemia. Gated images: Normal wall motion and ejection fraction of 67%. EDV: 106 mL ESV: 35 mL TID: 1.06 IMPRESSION: Questionable small reversible defect anterior wall apical segment near the junction with the lateral wall, may represent a small region of ischemia. Other areas of fixed defect, suggesting remote ischemia, involving the anterior wall proper, more jaymie ng the apical segment, as well as the inferior wall almost in its entirety, however the latter finding could alternatively be artifactual. Left ventricular ejection fraction: 67%, normal THIS REPORT CONTAINS FINDINGS THAT MAY BE CRITICAL TO PATIENT CARE. The findings were verbally commun icated via telephone to Tashia Cummings M.D. on 02/02/2024 2:13 PM.
--- NOTE | 2024-02-05 11:21 | EKG ---
Test Date: 2024-02-01 Test Time: 12:20:09 Chaplaincy: ALVIN MEASUREMENT RESULTS: Intervals: Rate: 74 OR: 154 QRSD: 74 QT: 368 QTc: 408 [place]: P: 63 OR: 154 QRS: 84 T: 17 INTERPRETIVE STATEMENTS: Normal sinus rhythm ST elevation, consider anterolateral injury or acute infarct Vs early repolarization due to LVH Abnormal ECG Compared to ECG 02/01/2024 12:17:57 Fusion complex(es) no longer present Ventricular premature complex(es) no longer present ST (T wave) deviation still present Myocardial infarct finding still present Electronically Signed On 02-05-24 11:15:50 FOOD TRUCK CATERER by Buzz Moctezuma
== END 2024-02-02 15:00 | disposition home or self-care (01) ==
LOC: ER 11:50 → ERHOLD 15:59 → 2ND 17:19
PROVIDERS: ADMIT Hospitalist; ATTEND Hospitalist
DX: R07.81 Pleurodynia (principal); R94.31 Abnormal electrocardiogram [ECG] [EKG]; R07.9 Chest pain, unspecified; I10 Essential (primary) hypertension; E78.5 Hyperlipidemia, unspecified; F17.290 Nicotine dependence, other tobacco product, uncomplicated
CPT/HCPCS: 36415; 71045; 71275; 78452; 80048; 80053; 80061; 81001; 83735; 84484; 85025; 93005; 93017; 96374; 96375; 99285; A9500; G0378; J2270; J2405; J2785; J3475; Q9967

== ENCOUNTER 2024-10-29 16:56 | Emergency (ER) | payer OTHER, SELFPAY ==
--- OUTSIDE RECORDS SUMMARY | 2024-10-29 17:00 | XMS REPORT | Continuity of Care Document ---
Author Name Unknown Address [address] [place] [id number] [place] [address] [facility] Address [address] [place] [address] [address] [place] [address] Care Team Providers [employer] Editorial Producer Name Role Phone Unavailable Unavailable Unavailable Results Test Description Test Time Test Comments Results Result Co mments Source [id number] 22:53:52* Test Item Value Reference Range Interpretation Comme nts RPR RESULT (test code = 3501) NON-REACTIVE NON-REACTIVE RPR TITER (test code = 3500) NOT INDIC. TITER NOT INDIC. UNLESS OTHERWISE INDICATED, ALL TESTING PERFORMED [facility] [address] [place] [id number] SALES REVIEW CLERK: MINOR QUINTANILLA M.D. CLIA NUMBER [id number] [place]. [id number]
[2024-10-29] MEDS ORDERED: IBUPROFEN 400 MG TAB ONE (17:08)
[2024-10-29] MEDS ORDERED: HYDROCODONE/APAP 7.5/325 MG TAB ONE (17:08)
--- NOTE | 2024-10-29 17:31 | RAD REPORT ---
EXAMINATION: Ankle Left 3 View CLINICAL INDICATION: Male, 34 years old. PAIN COMPARISON: 01/30/2023 FINDINGS: Probable trimalleolar fracture. There is a spiral distal fibular fracture that extends near the tibio fibular syndesmosis. A posterior malleolar fracture is noted. Subtle lucency at the medial malleolus probably a nondisplaced medial malleolar fracture. IMPRESSION: Suspected trimalleolar fracture.
--- NOTE | 2024-10-29 18:49 | EDPHYS ---
Physician Documentation [facility] Name: Glenda Ramires Jr Age: 34 yrs Sex: Male : 1990 Arrival Date: 10/29/2024 Time: 16:56 Bed 12 Private MD: ED Physician Hank Parks HPI: 10/29 17:19 This 34 yrs old Black Male presents to ER via Wheelchair with complaints of Ankle kb Injury - LT. 17:19 Pt is a 34 year old male who presents for left ankle pain after stepping into a hole kb and twisting it. States he felt and heard a pop when injury occurred. Denies any other injuries. . Historical: - Allergies: 17:01 No Known Allergies; ll1 - PMHx: 17:03 None; ll1 - PSHx: 17:03 None; ll1 - Immunization history:: Adult Immunizations up to date. - Social history:: Smoking status: Reported history of juuling and/or vaping. ROS: 17:19 Constitutional: As per HPI kb Exam: 17:19 Constitutional: This is a well developed, well nourished patient who is awake, alert, kb and in no acute distress. Head/Face: Normocephalic, atraumatic. ENT: Moist Mucous membranes Respiratory: Respirations even and unlabored. No increased work of breathing. Talking in full sentences Skin: Warm, dry with normal turgor. Normal color. Neuro: Awake and alert, GCS 15, oriented to person, place, time, and situation. 17:19 Musculoskeletal/extremity: Extremities: grossly normal except: noted in the left lateral ankle: pain, swelling, tenderness, ROM: limited active range of motion due to pain, Circulation is intact in all extremities. Sensation intact. Weight bearing: is unable to bear weight, Vital Signs: 17:01 BP 132 / 76; Pulse 104; Resp 18; Temp 98; Pulse Ox 100% ; Weight 72.57 kg; Height 5 ft. ll1 6 in. ; Pain 10/10; 17:01 Body Mass Index 25.82 (72.57 kg, 167.64 cm) ll1 17:01 Pain Scale: Adult ll1 Procedures: 18:57 Splinting: Splint applied to left lower leg using Orthoglass splint, short leg kb posterior with stirrup. applied by myself. tech. Examined by me, post splint application: neurovascular intact, 2+ distal pulses palpable, brisk capillary refill noted, Patient tolerated well. MDM: 16:59 Medical Screening Exam initiated 17:18 Differential diagnosis: fracture, sprain, dislocation. Data reviewed: vital signs, kb nurses notes. Independent interpretation of the following test(s) in the Emergency Department X-Ray: My interpretation is displaced fracture of fibula on tib/tib xray. Counseling: I had a detailed discussion with the patient and/or guardian regarding the historical points, exam findings, and any diagnostic results supporting the discharge/admit diagnosis, radiology results, the need for outpatient follow up, a orthopedic surgeon, to return to the emergency department if symptoms worsen or persist or if there are any questions or concerns that arise at home. 10/29 17:04 Order name: Ankle Left 3 View XRAY; Complete Time: 17:32 10/29 17:04 Order name: Short Leg Splint 10/29 17:04 Order name: Crutch Training Administered Medications: 17:10 Drug: Hydrocodone-Acetaminophen PO (7.5 mg-325 mg) 1 tabs PO once {Note: pain 11/15 ll1 RASS 0.} Route: PO; 17:10 Drug: Ibuprofen PO 800 mg PO once Route: PO; ll1 Disposition Summary: 10/29/24 18:48 Discharge Ordered Notes: Location: Home Condition: Stable kb Diagnosis - Displaced trimalleolar fracture of left lower leg, initial encounter for closed kb fracture Followup: kb - With: Emergency Department - When: As needed - Reason: Worsening of condition Followup: kb - With: Private Physician - When: 2 - 3 days - Reason: Recheck today's complaints, Continuance of care, Re-evaluation by your physician Discharge Instructions: - Discharge Summary Sheet kb - Ankle Fracture kb - Displaced Trimalleolar Ankle Fracture Treated With ORIF kb Forms: - Medication Reconciliation Form kb - Antibiotic Education kb - Prescription Opioid Use kb - Patient Portal Instructions kb - Leadership Thank You Letter kb Prescriptions: - acetaminophen-codeine 300-30 mg Oral tablet - take 1 tablet ORAL route every 4 to 6 hours as needed for pain; 12 tablet; kb Refills: 0, Product Selection Permitted - Ibuprofen 600 mg Oral Tablet - take 1 tablet ORAL route every 6 hours As needed take with food; 30 tablet; kb Refills: 0, Product Selection Permitted Signatures: Dispatcher [employer] Jeaneth Banda, BLADDER TRIMMER-C BLADDER TRIMMER-Courtney Guadalupe, RN RN ll1
--- NOTE | 2024-10-29 18:49 | ER ---
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 ll1 Coronavirus screen: Client denies travel out of the [place] in the last 14 days. At this time, the client does not indicate any symptoms associated with coronavirus-19. Ebola Screen: Patient denies travel to an Ebola-affected area in the 21 days before illness onset. Initial Sepsis Screen: Does the patient meet any 2 criteria? No. Patient's initial sepsis screen is negative. Does the patient have a suspected source of infection? No. Patient's initial sepsis screen is negative. Risk Assessment: Do you want to hurt yourself or someone else? Patient reports no desire to harm self or others. Onset of symptoms was October 29, 2024. 17:01 Method Of Arrival: Wheelchair ll1 17:01 Acuity: DAMIÁN 4 ll1 Triage Assessment: 17:01 General: Appears distressed, uncomfortable, Behavior is cooperative, appropriate for ll1 age, agitated. Pain: Complains of pain in left lateral ankle Pain currently is 10 out of 10 on a pain scale. Quality of pain is described as aching. Musculoskeletal: Circulation, motion, and sensation intact. Capillary refill < 3 seconds, Swelling present in left lateral ankle Reports pain in left lateral ankle. Historical: - Allergies: 17:01 No Known Allergies; ll1 - PMHx: 17:03 None; ll1 - PSHx: 17:03 None; ll1 - Immunization history:: Adult Immunizations up to date. - Social history:: Smoking status: Reported history of juuling and/or vaping. Assessment: 19:24 General: pt discharged by provider. kt5 Vital Signs: 17:01 BP 132 / 76; Pulse 104; Resp 18; Temp 98; Pulse Ox 100% ; Weight 72.57 kg; Height 5 ft. ll1 6 in. ; Pain 10/10; 17:01 Body Mass Index 25.82 (72.57 kg, 167.64 cm) ll1 17:01 Pain Scale: Adult ll1 ED Course: 16:58 Patient arrived in ED. cj3 16:59 Jeaneth Abreu FNP-C is [facility]. kb 16:59 Hank Parks MD is Attending Physician. kb 17:01 Arm band placed on. ll1 17:03 Triage completed. ll1 17:22 Ankle Left 3 View XRAY In Process Unspecified. EDMS 19:03 Crutch training done. Orthoglass splint: Posterior short lleg splint applied on left ty leg. stirrup splint applied on left leg. Administered Medications: 17:10 Drug: Hydrocodone-Acetaminophen PO (7.5 mg-325 mg) 1 tabs PO once {Note: pain 10/ ll1 RASS 0.} Route: PO; 17:10 Drug: Ibuprofen PO 800 mg PO once Route: PO; ll1 Outcome: 18:48 Discharge ordered by MD. kb 19:22 Discharged to home via wheelchair, with family, kt5 19:22 Condition: stable 19:22 Discharge instructions given to patient, family, Instructed on discharge instructions, follow up and referral plans. Demonstrated understanding of instructions, follow-up care, 19:24 Patient left the ED. kt5 Signatures: Dispatcher [employer] [facility] Jeaneth Abreu FNP-C FNP-Ckb Lewis, Lynsay RN RN ll1 Khoa Wheeler Celeste cj3 Kylie Mantilla RN RN kt5 Corrections: (The following items were deleted from the chart) 17:05 17:01 72.57 kg; Height 5 ft. 6 in.; BMI: 25.8; Pain 10/10, Adult; ll1 ll1
[2024-10-29 19:38] VITALS: BP 132/76; TEMP 98; O2SAT 100
== END 2024-10-29 19:24 | disposition home or self-care (01) ==
LOC: ER 16:56
PROC: 2W3RX1Z Immobilization of Left Lower Leg using Splint (ICD-10-PCS; principal; 2024-10-29)
DX: S82.852A Displaced trimalleolar fracture of left lower leg, initial encounter for closed fracture (principal)
CPT/HCPCS: 99283